=== PATIENT | female | born 1975 | race Caucasian/White ===

== ENCOUNTER 2019-07-31 08:20 | Day surgery (SDC) | payer BC ==
[~2019-07-31 08:20] MED LIST: Lactated Ringers 1,000 ML IV SCH; Lidocaine 1%/Sod Bicarbonate in NS 8.4% 1 ML Syringe IDERM PRN; Sodium Chloride 0.9% 10 ML Syringe FLUSH PRN
[2019-07-31] MEDS: Lactated Ringers 1,000 ML IV SCH ×2 (08:55→12:56)
[2019-07-31] MEDS ORDERED: Propofol 200 MG/20 ML SDV ONE (09:05)
[2019-07-31] MEDS ORDERED: Rocuronium 50 MG/5 ML Vial ONE ×2 (09:05→11:06)
[2019-07-31] MEDS ORDERED: fentaNYL 100 MCG/2 ML SDV ONE ×2 (09:05→11:09)
[2019-07-31] MEDS ORDERED: Lidocaine 1% 4 ML ONE (09:05)
[2019-07-31] MEDS ORDERED: Dexamethasone 4 MG/ML 5 ML MDV ONE (09:05)
[2019-07-31] MEDS ORDERED: Ondansetron 4 MG/2 ML SDV ONE (09:05)
[2019-07-31] MEDS ORDERED: Scopolamine 1.5 MG Transdermal Patch TRDERM ONE (09:29)
--- NOTE | 2019-07-31 09:44 | PCM.PREANE ---
Preanesthetic Assessment - Procedure Proposed Procedure: LAVH Bilateral Salpingectomy Removal of Right Ovary - Anesthesia/Transfusion/Family Hx Anesthesia History: Prior Anesthesia Without Reaction (Jasper teeth/Cataract) Family History of Anesthesia Reaction: No - Review of Systems General: No Symptoms Pulmonary: No Symptoms Cardiovascular: No Symptoms (Hypertension) Gastrointestinal: No Symptoms Neurological: No Symptoms Other: Reports: None, Anxiety - Physical Assessment NPO Status Date: 07/30/19 NPO Status Time: 20:00 Vital Signs: Last Vital Signs Temp 36.3 C 07/31/19 08:36 Pulse 89 07/31/19 08:36 Resp 18 07/31/19 08:36 BP 136/91 H 07/31/19 09:15 Pulse Ox 98 07/31/19 08:36 Height: 1.7 m Weight: 112.6 kg ASA Class: 2 Mental Status: Alert & Oriented x3 Airway Class: Mallampati = 3 Dentition: Reports: Normal Dentition Thyro-Mental Finger Breadths: 3 Mouth Opening Finger Breadths: 3 ROM/Head Extension: Full Lungs: Clear to Auscultation, Normal Respiratory Effort Cardiovascular: Regular Rate, Regular Rhythm - Lab Values: Laboratory Last Values Urine HCG, Qual Negative (NEGATIVE) 07/31/19 08:37 - Allergies Allergies/Adverse Reactions: Allergies Allergy/AdvReac Type Severity Reaction Status Date / Time No Known Allergies Allergy Verified 06/26/19 07:32 - Anesthesia Plan Pre-Op Medication Ordered: Anxiolytic, Other (Scopalamine patch. History of Motion Sickness. ) - Acknowledgements Anesthesia Type Planned: General Anesthesia Pt an Appropriate Candidate for the Planned Anesthesia: Yes Alternatives and Risks of Anesthesia Discussed w Pt/Guardian: Yes Pt/Guardian Understands and Agrees with Anesthesia Plan: Yes PreAnesthesia Questionnaire HEENT History: Reports: Cataract, Impaired Vision, Other (See Below) Other HEENT History: wears glases and has contact Cardiovascular History: Reports: Hypertension Respiratory History: Reports: Other (See Below) Other Respiratory History: snoring Gastrointestinal History: Reports: None Genitourinary History: Reports: Other (See Below) Other Genitourinary History: abnormal 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 (See Below) Other OB/BYN History: fibroid uterus, irregular menses, right ovarian mass, dysmenorrhea, breast nodule, PCOS Musculoskeletal History: Reports: Arthritis Neurological History: Reports: None Psychiatric History: Reports: Anxiety Endocrine/Metabolic History: Reports: None Hematologic History: Reports: Other (See Below) Other Hematologic History: hypokalemia Immunologic History: Reports: None Oncologic (Cancer) History: Reports: None Dermatologic History: Reports: Other (See Below) Other Dermatologic History: fever blister - Past Surgical History Head Surgeries/Procedures: Reports: None HEENT Surgical History: Reports: Cataract Surgery, Eye Surgery, Oral Surgery Cardiovascular Surgical History: Reports: None Respiratory Surgical History: Reports: None GI Surgical History: Reports: None Female Surgical History: Reports: None Male Surgical History: Reports: None Endocrine Surgical History: Reports: None Neurological Surgical History: Reports: None Oncologic Surgical History: Reports: None - SUBSTANCE USE Smoking Status *Q: Never Smoker Recreational Drug Use History: No - HOME MEDS Home Medications: Home Meds Potassium Chloride 10 meq PO BID 07/30/19 [History] Spironolactone 50 mg PO DAILY 07/30/19 [History] hydroCHLOROthiazide [Hydrochlorothiazide] 25 mg PO DAILY 07/30/19 [History] - CURRENT (IN HOUSE) MEDS Current Meds: Current Medications Lactated Ringer's (Ringers, Lactated) 1,000 mls @ 125 mls/hr IV ASDIRECTED [facility] Last Admin: 07/31/19 08:55 Dose: 125 mls/hr Discontinued Medications Dexamethasone (Dexamethasone) Confirm Administered Dose 20 mg .ROUTE .STK-MED ONE Stop: 07/31/19 09:06 Fentanyl (Sublimaze) Confirm Administered Dose 100 mcg .ROUTE .STK-MED ONE Stop: 07/31/19 09:06 Lactated Ringer's (Ringers, Lactated) 1,000 mls @ 125 mls/hr IV ASDIRECTED [facility] Stop: 07/30/19 23:00 Lidocaine HCl (Xylocaine-Mpf 1%) Confirm Administered Dose 4 mls @ as directed .ROUTE .STK-MED ONE Stop: 07/31/19 09:06 Lidocaine/Sodium Bicarbonate (Buffered Lidocaine 1% In Ns 8.4%) 0.25 ml IDERM ONETIME PRN PRN Reason: Prior to IV Start Stop: 07/30/19 18:00 Ondansetron HCl (Zofran) Confirm Administered Dose 4 mg .ROUTE .STK-MED ONE Stop: 07/31/19 09:06 Propofol (Diprivan 20 Ml) Confirm Administered Dose 200 mg .ROUTE .STK-MED ONE Stop: 07/31/19 09:06 Rocuronium Drew (Zemuron) Confirm Administered Dose 50 mg .ROUTE .STK-MED ONE Stop: 07/31/19 09:06 Scopolamine (Transderm-Scop) 1.5 mg TRDERM Q72H ONE Stop: 07/31/19 09:30 Last Admin: 07/31/19 09:35 Dose: 1.5 mg Sodium Chloride (Saline Flush) 10 ml FLUSH ASDIRECTED PRN PRN Reason: Keep Vein Open Stop: 07/30/19 18:00
[2019-07-31] MEDS ORDERED: Midazolam 1 MG/ML 2 ML SDV ONE (09:46)
[2019-07-31] MEDS ORDERED: Lidocaine 1% with EPINEPHrine 1:100,000 20 ML MDV ONE (09:58)
[2019-07-31] MEDS ORDERED: Bupivacaine 0.5% 30 ML SDV ONE (09:58)
[2019-07-31] MEDS ORDERED: Sodium Chloride 0.9% 50 ML SDV ONE (09:58)
[2019-07-31] MEDS ORDERED: ePHEDrine/Normal Saline 25 MG/5 ML Syringe ONE (10:33)
[2019-07-31] MEDS ORDERED: Morphine 10 MG/ML SDV ONE (10:37)
[2019-07-31] MEDS ORDERED: Ketamine 500 mg/10 ML MDV ONE (11:10)
[2019-07-31] MEDS ORDERED: Neostigmine Methylsulfate 1 MG/ML 5 ML Syringe ONE (11:30)
--- NOTE | 2019-07-31 12:12 | PCM.POSTAN ---
POST ANESTHESIA ASSESSMENT - MENTAL STATUS Mental Status: Alert, Oriented - VITAL SIGNS Vital Signs: Last Vital Signs Temp 36.3 C 07/31/19 08:36 Pulse 89 07/31/19 08:36 Resp 18 07/31/19 08:36 BP 136/91 H 07/31/19 09:15 Pulse Ox 98 07/31/19 08:36 - RESPIRATORY Respiratory Status: Respiratory Rate WNL, Airway Patent, O2 Saturation Stable ( NC O2 for comfort) - CARDIOVASCULAR CV Status: Pulse Rate WNL, Blood Pressure Stable - GASTROINTESTINAL GI Status: No Symptoms - PAIN Pain Score: 0 - POST OP HYDRATION Hydration Status: Adequate & Stable - OBSERVATIONS Free Text/Narrative:: Routine extubation and transfer to PACU. Handoff to RN. VSS, SV, BE, FAC, CTAB. NC O2 for comfort. Denies pain at this time. No complications.
--- NOTE | 2019-07-31 12:13 | PCM.OPNOTE ---
- General Post-Op/Procedure Note Date of Surgery/Procedure: 07/31/19 Operative Procedure(s): Laparascope assisted vaginal hysterectomy with bilateral salpingectomy and right oophorectomy (left ovary not removed) Pre Op Diagnosis: Broad uterus, abnormal menses,Fibroid uterus, abnormal menses , ovarian mass right-sided pelvic pain ovarian mass and right-sided pelvic pain Post-Op Diagnosis: Same Primary Surgeon: Jose Barrow Secondary Surgeon: Reid Oreilly Anesthesia Provider: Viraj King [employer] Worker: Henna Christianson (CARLOS) Reason [employer] Worker Was Necessary: [employer] Worker surgery,Asst. surgery, decreased comorbidity and mortality. decrease comorbidity and mortality Role of [employer] Worker: [employer] Worker surgery,Asst. surgery, decreased comorbidity and mortality. decrease comorbidity and mortality Fluid Replacement, Intraop: 1,900 Output, Urine Amount: 150 EBL in mLs: 50 Drain/Tube Comments:: Nicole during surgery removed after surgery completedDuring surgery removed after surgery completed Complications: None Condition: Good Free Text/Narrative:: The patient was transported to the operating room and placed under general anesthesia with endotracheal intubation the low dorsal lithotomy position. SCDs in place and functioning prior surgery. Patient received 1 injection of Ancef 2 g IV preop. Timeout performed. Patient prepared and draped in sterile fashion. Nicole catheter was placed gravity drainage and removed at the end of the procedure. The area of the intended incision at the umbilicus was injected with 2 mL of Marcaine without epinephrine. Varies needle was introduced and pneumoperitoneum was obtained without difficulty and the 5 mm self-retaining trocar was introduced prompt visualization of pelvic organs was accomplished. 2 additional ports were placed one in the right and one the left flank transilluminating the abdomen and injecting 2 mL of Marcaine without epinephrine 6 mm incisions and trochars placed without difficulty both self- retaining. Prompt visualization of pelvic organs was accomplished. One image was taken showing fibroid uterus protruding through the serosal surface fundally. The patient was insistent on having the right ovary removed at the time of surgery. Left ovary had a simple cyst consistent with corpus luteum cyst. The right infundibulopelvic ligament was crossclamped with the Enseal crossclamped activated and incised and proceeding towards the uterus and the pedicle fashion crossclamping activating and incising until the area of the round ligament tube and utero-ovarian ligament were visible. Since the right tube would be moved the round ligament was crossclamped activated in size and proceeding in a pedicle fashion caudad crossclamping activating and incising until the lower uterine segment was approximated and undermining the anterior peritoneal surface of the lower uterine segment crossclamping with the Enseal activating and incising an additional 2 bites were taken towards the cervix on the right side to crossclamped activated in size the uterine vessels. Same procedure was carried out on the left side without removal of the left ovary crossclamping the mesosalpinx proceeding towards the uterus crossclamping activating and incising until the area of the lower uterine segment was approximated and the undermining of the serosa of the lower uterine segment and meeting with the incision from the other side. 2 additional clamps were made on the left side to crossclamped the uterine vasculature activated in size. The procedure was then turned to the vaginal portion of the procedure. The cervix was grasped traction applied and injecting 20 mL of lidocaine with epinephrine 0.25% lidocaine in multiple confluent areas. The cervix was then massaged to help with spreading the lidocaine solution and circumscribed with a knife. The posterior cul-de-sac was entered without difficulty. The left uterosacral cardinal ligament crossclamped with the Enseal activated and incised same procedure carried out on the opposite side one additional bite bilaterally after obtaining anterior colpotomy entry and the uterus was removed. The posterior cuff was sutured with 0 Monocryl running locking suture beginning at 3 :00 and proceeding towards 9:00 in a clockwise fashion. The anterior posterior vaginal cuff then approximated with 0 Monocryl beginning on the patient's left side and proceeding to the right side running locking suture. Reinspection of the pelvic organs was then accomplished by reobtaining pneumoperitoneum hemostasis showed small amount of oozing on the left side 3 additional applications of the Enseal with electrocoagulation and sealing of the tissue without incising performed. And then as a precaution FloSeal placed at the apex of the vaginal cuff. Sponge needle pack asthma count correct on closure the vaginal cuff and on closure of the abdominal cavity as well. The pneumoperitoneum reduced trochars removed and 4-0 Monocryl utilizing interrupted sutures and Dermabond applied. Nicole catheter as noted above was removed after surgery. Patient tolerated procedure well and transported postanesthesia care unit in satisfactory condition. This note was created, at least in part, by the use of [employer] w/ voice dictation system. Inadvertent typographical errors, due to software recognition problems, may exist.
[2019-07-31] MEDS ORDERED: Acetaminophen/oxyCODONE 325-5 MG Tab PO PRN (12:34)
--- NOTE | 2019-07-31 13:19 | PCM48HPAN ---
Post Anesthesia Note - EVALUATION WITHIN 48HRS OF ANESTHETIC Vital Signs in Normal Range: Yes Patient Participated in Evaluation: Yes Respiratory Function Stable: Yes Airway Patent: Yes Cardiovascular Function Stable: Yes Hydration Status Stable: Yes Pain Control Satisfactory: Yes Nausea and Vomiting Control Satisfactory: Yes Mental Status Recovered: Yes Vital Signs: Last Vital Signs Temp 37.1 C 07/31/19 13:00 Pulse 80 07/31/19 13:00 Resp 14 07/31/19 13:00 BP 118/74 07/31/19 13:00 Pulse Ox 96 07/31/19 13:00 - COMMENTS/OBSERVATIONS Free Text/Narrative:: Patient sitting up in bed. 0/10 pain. Smiling. Conversant. No complications. No concerns at this time.
[2019-07-31] MEDS ORDERED: Ondansetron 4 MG Tab.DIS PO PRN (17:52)
[2019-07-31] MEDS ORDERED: Lactated Ringers 500 ML IV ONE (18:15)
[2019-07-31] MEDS ORDERED: Lactated Ringers 1,000 ML IV SCH ×3 (18:15→20:30)
[2019-07-31] MEDS: Acetaminophen/oxyCODONE 325-5 MG Tab PO PRN (18:38)
[2019-07-31] MEDS ORDERED: hydrOXYzine HCl 10 MG Tab PO SCH (20:15)
[2019-07-31] MEDS ORDERED: hydrOXYzine HCl 50 MG Tab PO SCH ×2 (21:00)
[2019-07-31] MEDS: Potassium Chloride 20 MEQ Tab.ER PO SCH (22:01)
[2019-08-01] MEDS: Acetaminophen/oxyCODONE 325-5 MG Tab PO PRN ×2 (00:28→06:22)
--- NOTE | 2019-08-01 08:28 | PCM.DCSUM1 ---
Discharge Summary - Hospital Course Free Text/Narrative:: [facility] Post-Op/Procedure Note Patient Name: ANITHA FU Date of : 77 Patient Status: Surgical Day Care Attending Provider: Jose Barrow Date: 07/31/19 12:01 Initialization Date: 07/31/19 12:01 - General Post-Op/Procedure Note Date of Surgery/Procedure: 07/31/19 Operative Procedure(s): Laparascope assisted vaginal hysterectomy with bilateral salpingectomy and right oophorectomy (left ovary not removed) Pre Op Diagnosis: Broad uterus, abnormal menses,Fibroid uterus, abnormal menses , ovarian mass right-sided pelvic pain ovarian mass and right-sided pelvic pain Post-Op Diagnosis: Same Primary Surgeon: Jose Barrow Secondary Surgeon: Reid Oreilly Anesthesia Provider: Viraj King [employer] Programmer: Henna Christianson (PAS) Reason [employer] Programmer Was Necessary: [employer] Programmer surgery,Asst. surgery, decreased comorbidity and mortality. decrease comorbidity and mortality Role of [employer] Programmer: [employer] Programmer surgery,Asst. surgery, decreased comorbidity and mortality. decrease comorbidity and mortality Fluid Replacement, Intraop: 1,900 Output, Urine Amount: 150 EBL in mLs: 50 Drain/Tube Comments:: Nicole during surgery removed after surgery completedDuring surgery removed after surgery completed Complications: None Condition: Good Free Text/Narrative:: The patient was transported to the operating room and placed under general anesthesia with endotracheal intubation the low dorsal lithotomy position. SCDs in place and functioning prior surgery. Patient received 1 injection of Ancef 2 g IV preop. Timeout performed. Patient prepared and draped in sterile fashion. Nicole catheter was placed gravity drainage and removed at the end of the procedure. The area of the intended incision at the umbilicus was injected with 2 mL of Marcaine without epinephrine. Varies needle was introduced and pneumoperitoneum was obtained without difficulty and the 5 mm self-retaining trocar was introduced prompt visualization of pelvic organs was accomplished. 2 additional ports were placed one in the right and one the left flank transilluminating the abdomen and injecting 2 mL of Marcaine without epinephrine 6 mm incisions and trochars placed without difficulty both self- retaining. Prompt visualization of pelvic organs was accomplished. One image was taken showing fibroid uterus protruding through the serosal surface fundally. The patient was insistent on having the right ovary removed at the time of surgery. Left ovary had a simple cyst consistent with corpus luteum cyst. The right infundibulopelvic ligament was crossclamped with the Enseal crossclamped activated and incised and proceeding towards the uterus and the pedicle fashion crossclamping activating and incising until the area of the round ligament tube and utero-ovarian ligament were visible. Since the right tube would be moved the round ligament was crossclamped activated in size and proceeding in a pedicle fashion caudad crossclamping activating and incising until the lower uterine segment was approximated and undermining the anterior peritoneal surface of the lower uterine segment crossclamping with the Enseal activating and incising an additional 2 bites were taken towards the cervix on the right side to crossclamped activated in size the uterine vessels. Same procedure was carried out on the left side without removal of the left ovary crossclamping the mesosalpinx proceeding towards the uterus crossclamping activating and incising until the area of the lower uterine segment was approximated and the undermining of the serosa of the lower uterine segment and meeting with the incision from the other side. 2 additional clamps were made on the left side to crossclamped the uterine vasculature activated in size. The procedure was then turned to the vaginal portion of the procedure. The cervix was grasped traction applied and injecting 20 mL of lidocaine with epinephrine 0.25% lidocaine in multiple confluent areas. The cervix was then massaged to help with spreading the lidocaine solution and circumscribed with a knife. The posterior cul-de-sac was entered without difficulty. The left uterosacral cardinal ligament crossclamped with the Enseal activated and incised same procedure carried out on the opposite side one additional bite bilaterally after obtaining anterior colpotomy entry and the uterus was removed. The posterior cuff was sutured with 0 Monocryl running locking suture beginning at 3 :00 and proceeding towards 9:00 in a clockwise fashion. The anterior posterior vaginal cuff then approximated with 0 Monocryl beginning on the patient's left side and proceeding to the right side running locking suture. Reinspection of the pelvic organs was then accomplished by reobtaining pneumoperitoneum hemostasis showed small amount of oozing on the left side 3 additional applications of the Enseal with electrocoagulation and sealing of the tissue without incising performed. And then as a precaution FloSeal placed at the apex of the vaginal cuff. Sponge needle pack asthma count correct on closure the vaginal cuff and on closure of the abdominal cavity as well. The pneumoperitoneum reduced trochars removed and 4-0 Monocryl utilizing interrupted sutures and Dermabond applied. Nicole catheter as noted above was removed after surgery. Patient tolerated procedure well and transported postanesthesia care unit in satisfactory condition. This note was created, at least in part, by the use of [employer] dictation system. Inadvertent typographical errors, due to software recognition problems, may exist. Patient kept on extended recovery due to acute urinary retention, now voiding without difficulty. Sodium low this morning (130), will increase salt intake next few days. Chloride normal this morning. No leg cramping, no heavy vaginal bleeding. Dismiss and RTC 2 weeks. HPI Initial Comments: [facility] Post-Op/Procedure Note Patient Name: ANITHA FU Date of : 77 Patient Status: Surgical Day Care Attending Provider: Jose Barrow Date: 07/31/19 12:01 Initialization Date: 07/31/19 12:01 - General Post-Op/Procedure Note Date of Surgery/Procedure: 07/31/19 Operative Procedure(s): Laparascope assisted vaginal hysterectomy with bilateral salpingectomy and right oophorectomy (left ovary not removed) Pre Op Diagnosis: Broad uterus, abnormal menses,Fibroid uterus, abnormal menses , ovarian mass right-sided pelvic pain ovarian mass and right-sided pelvic pain Post-Op Diagnosis: Same Primary Surgeon: Jose Barrow Secondary Surgeon: Reid Oreilly Anesthesia Provider: Viraj King [employer] Programmer: Henna Christianson (CARLOS) Reason [employer] Programmer Was Necessary: [employer] Programmer surgery,Asst. surgery, decreased comorbidity and mortality. decrease comorbidity and mortality Role of [employer] Programmer: [employer] Programmer surgery,Asst. surgery, decreased comorbidity and mortality. decrease comorbidity and mortality Fluid Replacement, Intraop: 1,900 Output, Urine Amount: 150 EBL in mLs: 50 Drain/Tube Comments:: Nicole during surgery removed after surgery completedDuring surgery removed after surgery completed Complications: None Condition: Good Free Text/Narrative:: The patient was transported to the operating room and placed under general anesthesia with endotracheal intubation the low dorsal lithotomy position. SCDs in place and functioning prior surgery. Patient received 1 injection of Ancef 2 g IV preop. Timeout performed. Patient prepared and draped in sterile fashion. Nicole catheter was placed gravity drainage and removed at the end of the procedure. The area of the intended incision at the umbilicus was injected with 2 mL of Marcaine without epinephrine. Varies needle was introduced and pneumoperitoneum was obtained without difficulty and the 5 mm self-retaining trocar was introduced prompt visualization of pelvic organs was accomplished. 2 additional ports were placed one in the right and one the left flank transilluminating the abdomen and injecting 2 mL of Marcaine without epinephrine 6 mm incisions and trochars placed without difficulty both self- retaining. Prompt visualization of pelvic organs was accomplished. One image was taken showing fibroid uterus protruding through the serosal surface fundally. The patient was insistent on having the right ovary removed at the time of surgery. Left ovary had a simple cyst consistent with corpus luteum cyst. The right infundibulopelvic ligament was crossclamped with the Enseal crossclamped activated and incised and proceeding towards the uterus and the pedicle fashion crossclamping activating and incising until the area of the round ligament tube and utero-ovarian ligament were visible. Since the right tube would be moved the round ligament was crossclamped activated in size and proceeding in a pedicle fashion caudad crossclamping activating and incising until the lower uterine segment was approximated and undermining the anterior peritoneal surface of the lower uterine segment crossclamping with the Enseal activating and incising an additional 2 bites were taken towards the cervix on the right side to crossclamped activated in size the uterine vessels. Same procedure was carried out on the left side without removal of the left ovary crossclamping the mesosalpinx proceeding towards the uterus crossclamping activating and incising until the area of the lower uterine segment was approximated and the undermining of the serosa of the lower uterine segment and meeting with the incision from the other side. 2 additional clamps were made on the left side to crossclamped the uterine vasculature activated in size. The procedure was then turned to the vaginal portion of the procedure. The cervix was grasped traction applied and injecting 20 mL of lidocaine with epinephrine 0.25% lidocaine in multiple confluent areas. The cervix was then massaged to help with spreading the lidocaine solution and circumscribed with a knife. The posterior cul-de-sac was entered without difficulty. The left uterosacral cardinal ligament crossclamped with the Enseal activated and incised same procedure carried out on the opposite side one additional bite bilaterally after obtaining anterior colpotomy entry and the uterus was removed. The posterior cuff was sutured with 0 Monocryl running locking suture beginning at 3 :00 and proceeding towards 9:00 in a clockwise fashion. The anterior posterior vaginal cuff then approximated with 0 Monocryl beginning on the patient's left side and proceeding to the right side running locking suture. Reinspection of the pelvic organs was then accomplished by reobtaining pneumoperitoneum hemostasis showed small amount of oozing on the left side 3 additional applications of the Enseal with electrocoagulation and sealing of the tissue without incising performed. And then as a precaution FloSeal placed at the apex of the vaginal cuff. Sponge needle pack asthma count correct on closure the vaginal cuff and on closure of the abdominal cavity as well. The pneumoperitoneum reduced trochars removed and 4-0 Monocryl utilizing interrupted sutures and Dermabond applied. Nicole catheter as noted above was removed after surgery. Patient tolerated procedure well and transported postanesthesia care unit in satisfactory condition. This note was created, at least in part, by the use of [employer] voice dictation system. Inadvertent typographical errors, due to software recognition problems, may exist. Patient kept on extended recovery due to acute urinary retention, now voiding without difficulty. Sodium low this morning (130), will increase salt intake next few days. Chloride normal this morning. No leg cramping, no heavy vaginal bleeding. Dismiss and RTC 2 weeks. Brief History: [facility] . Post-Op/Procedure Note. [facility]: [id number]. Date of : Patient Status: Surgical Day Care. Attending Provider: Jose Barrowount Number: [id number]. Date: 07/31/19 12:01Initialization Date: 11/14 12:01. - General Post-Op/Procedure Note. Date of Surgery/Procedure: 11/14. Operative Procedure(s): Laparascope assisted vaginal hysterectomy with bilateral salpingectomy and right oophorectomy (left ovary not removed). Pre Op Diagnosis: Broad uterus, abnormal menses,Fibroid uterus, abnormal menses, ovarian mass right-sided pelvic pain ovarian mass and right-sided pelvic pain. Post-Op Diagnosis: Same. Primary Surgeon: Jose Barrow. Secondary Surgeon : Reid Oreilly. Anesthesia Provider: Viraj King. [employer] Programmer: Henna Christianson (CARLOS). Reason [employer] Programmer Was Necessary: [employer] Programmer surgery,Asst. surgery , decreased comorbidity and mortality. decrease comorbidity and mortality. Role of [employer] Programmer: [employer] Programmer surgery,Asst. surgery, decreased comorbidity and mortality. decrease comorbidity and mortality. Fluid Replacement, Intraop: 1, 900. Output, Urine Amount: 150. EBL in mLs: 50. Drain/Tube Comments:: Nicole during surgery removed after surgery completedDuring surgery removed after surgery completed. Complications: None. Condition: Good. Free Text/Narrative: : The patient was transported to the operating room and placed under general anesthesia with endotracheal intubation the low dorsal lithotomy position. SCDs in place and functioning prior surgery. Patient received 1 injection of Ancef 2 g IV preop. Timeout performed. Patient prepared and draped in sterile fashion. Nicole catheter was placed gravity drainage and removed at the end of the procedure. The area of the intended incision at the umbilicus was injected with 2 mL of Marcaine without epinephrine. Varies needle was introduced and pneumoperitoneum was obtained without difficulty and the 5 mm self-retaining trocar was introduced prompt visualization of pelvic organs was accomplished. 2 additional ports were placed one in the right and one the left flank transilluminating the abdomen and injecting 2 mL of Marcaine without epinephrine 6 mm incisions and trochars placed without difficulty both self- retaining. Prompt visualization of pelvic organs was accomplished. One image was taken showing fibroid uterus protruding through the serosal surface fundally. The patient was insistent on having the right ovary removed at the time of surgery. Left ovary had a simple cyst consistent with corpus luteum cyst. The right infundibulopelvic ligament was crossclamped with the Enseal crossclamped activated and incised and proceeding towards the uterus and the pedicle fashion crossclamping activating and incising until the area of the round ligament tube and utero-ovarian ligament were visible. Since the right tube would be moved the round ligament was crossclamped activated in size and proceeding in a pedicle fashion caudad crossclamping activating and incising until the lower uterine segment was approximated and undermining the anterior peritoneal surface of the lower uterine segment crossclamping with the Enseal activating and incising an additional 2 bites were taken towards the cervix on the right side to crossclamped activated in size the uterine vessels. Same procedure was carried out on the left side without removal of the left ovary crossclamping the mesosalpinx proceeding towards the uterus crossclamping activating and incising until the area of the lower uterine segment was approximated and the undermining of the serosa of the lower uterine segment and meeting with the incision from the other side. 2 additional clamps were made on the left side to crossclamped the uterine vasculature activated in size. The procedure was then turned to the vaginal portion of the procedure. The cervix was grasped traction applied and injecting 20 mL of lidocaine with epinephrine 0.25% lidocaine in multiple confluent areas. The cervix was then massaged to help with spreading the lidocaine solution and circumscribed with a knife. The posterior cul-de-sac was entered without difficulty. The left uterosacral cardinal ligament crossclamped with the Enseal activated and incised same procedure carried out on the opposite side one additional bite bilaterally after obtaining anterior colpotomy entry and the uterus was removed. The posterior cuff was sutured with 0 Monocryl running locking suture beginning at 3 :00 and proceeding towards 9:00 in a clockwise fashion. The anterior posterior vaginal cuff then approximated with 0 Monocryl beginning on the patient's left side and proceeding to the right side running locking suture. Reinspection of the pelvic organs was then accomplished by reobtaining pneumoperitoneum hemostasis showed small amount of oozing on the left side 3 additional applications of the Enseal with electrocoagulation and sealing of the tissue without incising performed. And then as a precaution FloSeal placed at the apex of the vaginal cuff. Sponge needle pack asthma count correct on closure the vaginal cuff and on closure of the abdominal cavity as well. The pneumoperitoneum reduced trochars removed and 4-0 Monocryl utilizing interrupted sutures and Dermabond applied. Nicole catheter as noted above was removed after surgery. Patient tolerated procedure well and transported postanesthesia care unit in satisfactory condition. This note was created, at least in part, by the use of [employer] voice dictation system. Inadvertent typographical errors, due to software recognition problems, may exist. Patient kept on extended recovery due to acute urinary retention, now voiding without difficulty. Sodium low this morning (130), will increase salt intake next few days. Chloride normal this morning. No leg cramping, no heavy vaginal bleeding. Dismiss and RTC 2 weeks. Diagnosis: Stroke: No - Discharge Data Discharge Date: 08/01/19 Discharge Disposition: Home, Self-Care 01 Condition: Good - Referral to Home Health Primary Care Physician: Mamta Hall PA-C - Discharge Diagnosis/Problem(s) (1) Abdominal pain, right lower quadrant SNOMED Code(s): 300005009 ICD Code: R10.31 - RIGHT LOWER QUADRANT PAIN Status: Acute Current Visit : Yes (2) Other noninflammatory disorders of ovary, fallopian tube and broad ligament SNOMED Code(s): 6966223 ICD Code: N83.8 - OTH NONINFLAMMATORY DISORD OF OVARY, FALLOP AND BROAD LIGMT Status: Acute Current Visit: Yes (3) Abnormal menses SNOMED Code(s): 520971607 ICD Code: N92.6 - IRREGULAR MENSTRUATION, UNSPECIFIED Status: Acute Current Visit: Yes (4) Serosal uterine leiomyoma SNOMED Code(s): 14033780 ICD Code: D25.9 - LEIOMYOMA OF UTERUS, UNSPECIFIED Status: Acute Current Visit: Yes (5) Acute hyponatremia SNOMED Code(s): 0545892 ICD Code: E87.1 - HYPO-OSMOLALITY AND HYPONATREMIA Status: Acute Current Visit: Yes (6) Postoperative urinary retention SNOMED Code(s): 025838106 ICD Code: N99.89 - OTH POSTPROCEDURAL COMPLICATIONS AND DISORDERS OF SYS; R33.8 - OTHER RETENTION OF URINE Status: Acute Current Visit: Yes - Patient Summary/Data Operative Procedure(s) Performed: Laparascope assisted vaginal hysterectomy with bilateral salpingectomy and right oophorectomy (left ovary not removed) Complications: low sodium will be corrected with diet. Acute urinary retention resolved Consults: none Hospital Course: uneventful - Patient Instructions Diet: Usual Diet as Tolerated Driving: Do Not Drive (For 2 weeks and 48 hours after last Percocet) Showering/Bathing: May Shower, No Tub Bathing/Swimming (6 weeks) Wound/Incision Care: Keep Operative Site/Wound Site Clean and Dry Notify Provider of: Fever, Increased Pain, Swelling and Redness, Drainage, Nausea and/or Vomiting - Discharge Plan *PRESCRIPTION DRUG MONITORING PROGRAM REVIEWED*: Yes *COPY OF PRESCRIPTION DRUG MONITORING REPORT IN PATIENT AMAURY: Yes Prescriptions/Med Rec: Acetaminophen 325 mg PO Q6H #50 tablet Acetaminophen/oxyCODONE [Percocet 325-5 MG] 1 each PO Q6H #20 tab Ibuprofen 600 mg PO Q6H #50 tablet Ondansetron [Zofran ODT] 4 mg PO Q6H PRN #20 tab.dis PRN Reason: Nausea Home Medications: Home Meds Potassium Chloride 10 meq PO BID 07/30/19 [History] Spironolactone 50 mg PO DAILY 07/30/19 [History] hydroCHLOROthiazide [Hydrochlorothiazide] 25 mg PO DAILY 07/30/19 [History] Acetaminophen 325 mg PO Q6H #50 tablet 07/31/19 [Rx] Acetaminophen/oxyCODONE [Percocet 325-5 MG] 1 each PO Q6H #20 tab 07/31/19 [Rx] Ibuprofen 600 mg PO Q6H #50 tablet 07/31/19 [Rx] Ondansetron [Zofran ODT] 4 mg PO Q6H PRN #20 tab.dis 07/31/19 [Rx] Patient Handouts: Acetaminophen; Oxycodone tablets, Ondansetron oral dissolving tablet, Laparoscopically Assisted Vaginal Hysterectomy, Care After, Ibuprofen tablets and capsules, Laparoscopically Assisted Vaginal Hysterectomy, Acetaminophen tablets or caplets Referrals: Jose Barrow MD [Physician] - 08/14/19 2:30 pm (Anitha, please followup with Dr. Barrow in the clinic as previously scheduled on August 14 at 2:30pm. ) - Discharge Summary/Plan Comment DC Time >30 min.: No - Patient Data Vitals - Most Recent: Last Vital Signs Temp 98.2 F 08/01/19 03:55 Pulse 75 08/01/19 03:55 Resp 18 08/01/19 03:55 BP 114/65 08/01/19 03:55 Pulse Ox 96 08/01/19 06:25 Weight - Most Recent: 248 lb 3.85 oz I&O - Last 24 hours: Intake & Output 07/31/19 08/01/19 08/01/19 22:59 06:59 14:59 Intake Total 770 1667 Output Total 1300 Balance 770 367 Lab Results - Last 24 hrs: Laboratory Results - last 24 hr 07/31/19 07/31/19 07/31/19 Range/Units 08:37 08:55 08:55 WBC (3.98-10.04) K/mm3 RBC (3.98-5.22) M/mm3 Hgb (11.2-15.7) gm/dl Hct (34.1-44.9) % MCV (79.4-94.8) fl MCH (25.6-32.2) pg MCHC (32.2-35.5) g/dl RDW Std Deviation (36.4-46.3) fL Plt Count (182-369) K/mm3 MPV (9.4-12.3) fl Neut % (Auto) (34.0-71.1) % Lymph % (Auto) (19.3-51.7) % York % (Auto) (4.7-12.5) % Eos % (Auto) (0.7-5.8) Baso % (Auto) (0.1-1.2) % Neut # (Auto) (1.56-6.13) K/mm3 Lymph # (Auto) (1.18-3.74) K/mm3 York # (Auto) (0.24-0.36) K/mm3 Eos # (Auto) (0.04-0.36) K/mm3 Baso # (Auto) (0.01-0.08) K/mm3 Manual Slide Review Sodium 137 (136-145) mEq/L Potassium 3.5 (3.5-5.1) mEq/L Chloride 100 (98-107) mEq/L Carbon Dioxide 24 (21-32) mEq/L Anion Gap 16.5 H (5-15) BUN 14 (7-18) mg/dL Creatinine 0.8 (0.55-1.02) mg/dL Est Cr Clr Drug Dosing 88.18 mL/min Estimated GFR (MDRD) > 60 (>60) mL/min BUN/Creatinine Ratio 17.5 (14-18) Glucose 101 (74-106) mg/dL Calcium 9.4 (8.5-10.1) mg/dL Total Bilirubin (0.2-1.0) mg/dL AST (15-37) U/L ALT (14-59) U/L Alkaline Phosphatase (46-116) U/L Total Protein (6.4-8.2) g/dl Albumin (3.4-5.0) g/dl Globulin gm/dL Albumin/Globulin Ratio (1-2) Urine HCG, Qual Negative (NEGATIVE) Blood Type O NEGATIVE Gel Antibody Screen Negative 08/01/19 08/01/19 Range/Units 05:00 05:00 WBC 20.43 H (3.98-10.04) K/mm3 RBC 3.96 L (3.98-5.22) M/mm3 Hgb 11.8 D (11.2-15.7) gm/dl Hct 34.0 L (34.1-44.9) % MCV 85.9 (79.4-94.8) fl MCH 29.8 (25.6-32.2) pg MCHC 34.7 (32.2-35.5) g/dl RDW Std Deviation 39.2 (36.4-46.3) fL Plt Count 304 (182-369) K/mm3 MPV 9.8 (9.4-12.3) fl Neut % (Auto) 87.6 H (34.0-71.1) % Lymph % (Auto) 7.2 L (19.3-51.7) % York % (Auto) 5.2 (4.7-12.5) % Eos % (Auto) 0 L (0.7-5.8) Baso % (Auto) 0.0 L (0.1-1.2) % Neut # (Auto) 17.89 H (1.56-6.13) K/mm3 Lymph # (Auto) 1.47 (1.18-3.74) K/mm3 York # (Auto) 1.06 H (0.24-0.36) K/mm3 Eos # (Auto) 0.00 L (0.04-0.36) K/mm3 Baso # (Auto) 0.01 (0.01-0.08) K/mm3 Manual Slide Review Sodium 130 L (136-145) mEq/L Potassium 3.6 (3.5-5.1) mEq/L Chloride 98 (98-107) mEq/L Carbon Dioxide 24 (21-32) mEq/L Anion Gap 11.6 (5-15) BUN 13 (7-18) mg/dL Creatinine 0.7 (0.55-1.02) mg/dL Est Cr Clr Drug Dosing 100.77 mL/min Estimated GFR (MDRD) > 60 (>60) mL/min BUN/Creatinine Ratio 18.6 H (14-18) Glucose 142 H (74-106) mg/dL Calcium 8.4 L (8.5-10.1) mg/dL Total Bilirubin 0.4 (0.2-1.0) mg/dL AST 19 (15-37) U/L ALT 34 (14-59) U/L Alkaline Phosphatase 84 (46-116) U/L Total Protein 6.4 (6.4-8.2) g/dl Albumin 3.2 L (3.4-5.0) g/dl Globulin 3.2 gm/dL Albumin/Globulin Ratio 1.0 (1-2) Urine HCG, Qual (NEGATIVE) Blood Type Gel Antibody Screen Med Orders - Current: Current Medications Bethanechol Chloride (Urecholine) 10 mg PO Q6H [facility] Last Admin: 08/01/19 06:22 Dose: 10 mg Hydroxyzine HCl (Atarax) 50 mg PO BEDTIME [facility] Last Admin: 07/31/19 22:07 Dose: Not Given Lactated Ringer's (Ringers, Lactated) 1,000 mls @ 15 mls/hr IV ASDIRECTED [facility] Ondansetron HCl (Zofran Odt) 4 mg PO Q6H PRN PRN Reason: Nausea/Vomiting Last Admin: 07/31/19 18:37 Dose: 4 mg Oxycodone/Acetaminophen (Percocet 325-5 Mg) 1 tab PO Q6H PRN PRN Reason: Pain Last Admin: 08/01/19 06:22 Dose: 1 tab Potassium Chloride (Klor-Con M20) 20 meq PO BID [facility] Last Admin: 07/31/19 22:01 Dose: 20 meq Discontinued Medications Bethanechol Chloride (Urecholine) 10 mg PO Q1H [facility] Stop: 07/31/19 22:01 Last Admin: 07/31/19 20:35 Dose: Not Given Bupivacaine HCl (Marcaine 0.5%) Confirm Administered Dose 30 ml .ROUTE .STK-MED ONE Stop: 07/31/19 09:59 Last Admin: 07/31/19 10:50 Dose: 10 ml Dexamethasone (Dexamethasone) Confirm Administered Dose 20 mg .ROUTE .STK-MED ONE Stop: 07/31/19 09:06 Ephedrine Sulfate (Ephedrine In Ns) Confirm Administered Dose 25 mg .ROUTE .STK- MED ONE Stop: 07/31/19 10:34 Fentanyl (Sublimaze) Confirm Administered Dose 100 mcg .ROUTE .STK-MED ONE Stop: 07/31/19 09:06 Fentanyl (Sublimaze) Confirm Administered Dose 100 mcg .ROUTE .STK-MED ONE Stop: 07/31/19 11:10 Glycopyrrolate () Confirm Administered Dose 1 mg .ROUTE .STK-[facility] ONE Stop: 07/31/19 10:58 Hydroxyzine HCl (Atarax) 50 mg PO BEDTIME [facility] Hydroxyzine HCl (Atarax) 10 mg PO Q6H [facility] Last Admin: 07/31/19 20:32 Dose: Not Given Lactated Ringer's (Ringers, Lactated) 1,000 mls @ 125 mls/hr IV ASDIRECTED [facility] Stop: 07/30/19 23:00 Lidocaine HCl (Xylocaine-Mpf 1%) Confirm Administered Dose 4 mls @ as directed .ROUTE .STK-[facility] ONE Stop: 07/31/19 09:06 Lactated Ringer's (Ringers, Lactated) 1,000 mls @ 125 mls/hr IV ASDIRECTED [facility] Stop: 07/31/19 23:00 Last Admin: 07/31/19 12:56 Dose: 125 mls/hr Lactated Ringer's (Ringers, Lactated) 500 mls @ 999 mls/hr IV ASDIRECTED ONE Stop: 07/31/19 18:45 Last Admin: 07/31/19 20:31 Dose: Not Given Lactated Ringer's (Ringers, Lactated) 1,000 mls @ 250 mls/hr IV ASDIRECTED [facility] Stop: 07/31/19 20:16 Last Admin: 07/31/19 18:40 Dose: 250 mls/hr Lactated Ringer's (Ringers, Lactated) 1,000 mls @ 150 mls/hr IV ASDIRECTED [facility] Ketamine HCl (Ketalar) Confirm Administered Dose 500 mg .ROUTE .STK-MED ONE Stop: 07/31/19 11:11 Lidocaine/Epinephrine (Xylocaine 1% With Epinephrine 1:100,000) Confirm Administered Dose 20 ml .ROUTE .STK-MED ONE Stop: 07/31/19 09:59 Last Admin: 07/31/19 11:11 Dose: 5 ml Lidocaine/Sodium Bicarbonate (Buffered Lidocaine 1% In Ns 8.4%) 0.25 ml IDERM ONETIME PRN PRN Reason: Prior to IV Start Stop: 07/30/19 18:00 Midazolam HCl (Versed 1 Mg/Ml) Confirm Administered Dose 2 mg .ROUTE .STK-MED ONE Stop: 07/31/19 09:47 Morphine Sulfate (Morphine) Confirm Administered Dose 10 mg .ROUTE .STK-MED ONE Stop: 07/31/19 10:38 Neostigmine Methylsulfate (Neostigmine) Confirm Administered Dose 5 mg .ROUTE .STK-MED ONE Stop: 07/31/19 11:31 Ondansetron HCl (Zofran) Confirm Administered Dose 4 mg .ROUTE .STK-MED ONE Stop: 07/31/19 09:06 Oxycodone/Acetaminophen (Percocet 325-5 Mg) 1 - 2 tab PO Q6H PRN PRN Reason: Pain Stop: 07/31/19 18:00 Last Admin: 07/31/19 12:46 Dose: 2 tab Propofol (Diprivan 20 Ml) Confirm Administered Dose 200 mg .ROUTE .STK-MED ONE Stop: 07/31/19 09:06 Rocuronium Cuero (Zemuron) Confirm Administered Dose 50 mg .ROUTE .STK-MED ONE Stop: 07/31/19 09:06 Rocuronium Cuero (Zemuron) Confirm Administered Dose 50 mg .ROUTE .STK-MED ONE Stop: 07/31/19 11:07 Scopolamine (Transderm-Scop) 1.5 mg TRDERM Q72H ONE Stop: 07/31/19 09:30 Last Admin: 07/31/19 09:35 Dose: 1.5 mg Sodium Chloride (Saline Flush) 10 ml FLUSH ASDIRECTED PRN PRN Reason: Keep Vein Open Stop: 07/30/19 18:00 Sodium Chloride (Normal Saline) Confirm Administered Dose 50 ml .ROUTE .[facility]-MED ONE Stop: 07/31/19 09:59 Last Admin: 07/31/19 11:11 Dose: 15 ml
[2019-08-01] MEDS: Potassium Chloride 20 MEQ Tab.ER PO SCH (08:55)
[2019-08-01] MEDS ORDERED: Spironolactone 25 MG Tab PO SCH (09:00)
[2019-08-01] MEDS ORDERED: Hydrochlorothiazide 25 MG Tab PO SCH (09:00)
[2019-08-01] MEDS ORDERED: Potassium Chloride 10 MEQ Tab.ER PO SCH (09:00)
== END 2019-08-01 10:00 | disposition home or self-care (01) ==
LOC: JD.SDS 08:20 → MERGE 09:45 → JD.MS 17:50 → JD.SDS 08-01 10:00
PROVIDERS: ATTEND Obstetrics & Gynecology
DX: D25.1 Intramural leiomyoma of uterus (principal); N87.9 Dysplasia of cervix uteri, unspecified; N72 Inflammatory disease of cervix uteri; N88.8 Other specified noninflammatory disorders of cervix uteri; N80.0 Endometriosis of uterus; N83.311 Acquired atrophy of right ovary; N83.8 Other noninflammatory disorders of ovary, fallopian tube and broad ligament; E87.1 Hypo-osmolality and hyponatremia; E28.2 Polycystic ovarian syndrome; N99.89 Other postprocedural complications and disorders of genitourinary system; E87.6 Hypokalemia; I10 Essential (primary) hypertension; M19.90 Unspecified osteoarthritis, unspecified site; Z79.899 Other long term (current) drug therapy
CPT/HCPCS: 36415; 58552; 80048; 80053; 81025; 85025; 86850; 86900; 86901; 93005; 94761; A9270; J1100; J2001; J2250; J2270; J2405; J2704; J2710; J3010; J3490; J7050; J7120

== ENCOUNTER 2023-09-28 17:12 | Emergency (ER) | payer BC, OTHER ==
[2023-09-28] MEDS ORDERED: Acetaminophen 325 MG Tab PO ONE (18:11)
== END 2023-09-28 18:27 | disposition home or self-care (01) ==
LOC: JD.ED 17:12
DX: S52.122A Displaced fracture of head of left radius, initial encounter for closed fracture (principal); I10 Essential (primary) hypertension; Z79.899 Other long term (current) drug therapy; W18.40XA Slipping, tripping and stumbling without falling, unspecified, initial encounter
CPT/HCPCS: 73080; 99283; A9270